=== PATIENT | male | born 2000 | race Caucasian/White ===

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

== ENCOUNTER → 2019-01-09 | Outpatient (CLI) | payer OTHER ==
[2019-01-09 16:29] LABS: HEMATOCRIT 44.7 % (37.9-51.0); HEMOGLOBIN 15.9 g/dL (13.5-17.0); MEAN CORPUSCULAR HEMOGLOBIN 30.7 pg (27.0-33.4); MEAN CORPUSCULAR HGB CONC 35.6 g/dL (32.0-36.0); MEAN CORPUSCULAR VOLUME 86 fl (80-97); PLATELET COUNT 258 10^3/uL (150-450); RED BLOOD COUNT 5.19 10^6/uL (4.35-5.55); WHITE BLOOD COUNT 9.5 10^3/uL (4.0-10.5)
[2019-01-09 16:53] LABS: ALANINE AMINOTRANSFERASE 70 U/L (10-40); ALBUMIN 4.6 g/dL (3.7-5.6); ALKALINE PHOSPHATASE 103 U/L (65-260); ASPARTATE AMINO TRANSFERASE 41 U/L (10-45); BILIRUBIN,DIRECT 0.3 mg/dL (0.0-0.4); BILIRUBIN,TOTAL 0.3 mg/dL (0.2-1.3); TOTAL PROTEIN 7.7 g/dL (6.3-8.2)
== END ==
LOC: OD 15:15
PROVIDERS: ATTEND Specialist
DX: G40.89 Other seizures (principal); Z79.899 Other long term (current) drug therapy
CPT/HCPCS: 36415; 80076; 80164; 85027

== ENCOUNTER → 2019-11-06 | Outpatient (CLI) | payer OTHER ==
[2019-11-06 16:59] LABS: HEMATOCRIT 41.9 % (37.9-51.0); HEMOGLOBIN 14.7 g/dL (13.5-17.0); MEAN CORPUSCULAR HEMOGLOBIN 29.2 pg (27.0-33.4); MEAN CORPUSCULAR HGB CONC 35.2 g/dL (32.0-36.0); MEAN CORPUSCULAR VOLUME 83 fl (80-97); PLATELET COUNT 285 10^3/uL (150-450); RED BLOOD COUNT 5.05 10^6/uL (4.35-5.55); RED CELL DISTRIBUTION WIDTH 13.3 % (11.5-14.0); WHITE BLOOD COUNT 7.6 10^3/uL (4.0-10.5)
[2019-11-06 17:18] LABS: ALBUMIN 4.7 g/dL (3.5-5.0); ALKALINE PHOSPHATASE 118 U/L (38-126); ASPARTATE AMINO TRANSFERASE 52 U/L (17-59); BILIRUBIN,TOTAL 0.3 mg/dL (0.2-1.3); TOTAL PROTEIN 7.5 g/dL (6.3-8.2)
== END ==
LOC: OD 16:16
PROVIDERS: ATTEND Specialist
DX: G40.89 Other seizures (principal); Z79.899 Other long term (current) drug therapy
CPT/HCPCS: 36415; 80076; 80164; 85027